=== PATIENT | male | born 1960 | race American Indian/Alaskan Native ===

== ENCOUNTER 2020-07-31 13:21 | Emergency (ER) | payer MEDICARE ==
[2020-07-31 13:37] VITALS: BP 133/75
--- NOTE | 2020-07-31 14:21 | Event Note ---
ED Screening Note Date of service: 07/31/20 Time: 14:16 ED Screening Note: 60-year-old male with no prior medical condition presents with frequent urination x24 hours. This initial assessment/diagnostic orders/clinical plan/treatment(s) is/are subject to change based on patients health status, clinical progression and re- assessment by fellow clinical providers in the ED. Further treatment and workup at subsequent clinical providers discretion. Patient/guardian urged not to elope from the ED as their condition may be serious if not clinically assessed and managed. Initial orders include: Urinalysis, CBC CMP ordered.
[2020-07-31 14:25] LABS: Bilirubin,Urine NEG (Negative); Blood,Urine LG (Negative); Color,Urine Yellow (Yellow); Mucus,Urine FEW /HPF; Urobilinogen,Urine < 2.0 mg/dL (<2.0)
[2020-07-31 14:27] LABS: WBC,Urine > 182.0 /HPF (0.0-6.0)
[2020-07-31] MEDS ORDERED: AZITHROMYCIN 250 MG TAB PO ONE (15:28)
[2020-07-31] MEDS ORDERED: LIDOCAINE-MPF (1%) 10 MG/1 ML VIAL 5 ML INFILTRATI ONE ×2 (15:28)
--- NOTE | 2020-07-31 15:53 | Emergency Department Report ---
ED Male HPI - General Chief complaint: Urogenital-Male Stated complaint: CAN'T STOP URINATING Time Seen by Provider: 07/31/20 15:08 Source: patient Mode of arrival: Ambulatory Limitations: No Limitations - History of Present Illness Initial comments: This is a 60-year-old female nontoxic, well nourished in appearance, no acute signs of distress presents to the ED with c/o of dysuria, polyuria, and urinary frequency x 1 day. Patient denies any penile discharge, bleeding, ulcers or lesions. Patient denies any back or flank pain. Patient denies any pelvic or abdominal pain. Patient denies any nausea, vomiting, chest pain, shortness of breathe, fever, chills, headache, back pain, numbness, tingling, stiff neck. Patient denies any other urinary symptoms. Patient denies any allergies. MD Complaint: dysuria -: days(s) Location: penis Radiation: none Severity: mild Severity scale (0 -10): 3 Quality: burning Consistency: constant Improves with: none Worsens with: urination dysuria. denies: discharge, swelling, mass, rash, urinary retention, blood in urine, fever, nausea/vomiting, incontinence - Related Data Home Medications Medication Instructions Recorded Confirmed Last Taken NIFEdipine [Nifedipine ER] 30 mg PO DAILY 08/04/19 08/04/19 08/04/19 30 mg Torsemide [Demadex] 20 mg PO DAILY 08/04/19 08/04/19 08/04/19 20 mg carvediloL [Coreg] 6.25 mg PO BID 08/04/19 08/04/19 08/04/19 6.25mg traMADoL [Ultram 50 MG tab] 50 mg PO DAILY PRN 08/04/19 08/04/19 08/04/19 11:59 50 mg Previous Rx's Medication Instructions Recorded Last Taken Type Ciprofloxacin HCl 500 mg PO Q12H #20 tablet 07/31/20 Unknown Rx Allergies Allergy/AdvReac Type Severity Reaction Status Date / Time No Known Allergies Allergy Verified 07/31/20 13:34 ED Review of Systems ROS: Stated complaint: CAN'T STOP URINATING Other details as noted in HPI Comment: All other systems reviewed and negative Constitutional: denies: chills, fever Eyes: denies: eye pain, eye discharge, vision change ENT: denies: ear pain, throat pain Respiratory: denies: cough, shortness of breath, wheezing Cardiovascular: denies: chest pain, palpitations Endocrine: no symptoms reported Gastrointestinal: denies: abdominal pain, nausea, diarrhea Genitourinary: dysuria, frequency. denies: urgency, hematuria, discharge, testicular pain, testicular mass Musculoskeletal: denies: back pain, joint swelling, arthralgia Skin: denies: rash, lesions Neurological: denies: headache, weakness, paresthesias Psychiatric: denies: anxiety, depression Hematological/Lymphatic: denies: easy bleeding, easy bruising ED Past Medical Hx - Past Medical History Hx Hypertension: Yes Hx Diabetes: Yes Hx Dementia: Yes - Social History Smoking Status: Never Smoker Substance Use Type: None - Medications Home Medications: Home Medications Medication Instructions Recorded Confirmed Last Taken Type NIFEdipine [Nifedipine ER] 30 mg PO DAILY 08/04/19 08/04/19 08/04/19 History 30 mg Torsemide [Demadex] 20 mg PO DAILY 08/04/19 08/04/19 08/04/19 History 20 mg carvediloL [Coreg] 6.25 mg PO BID 08/04/19 08/04/19 08/04/19 History 6.25mg traMADoL [Ultram 50 MG tab] 50 mg PO DAILY PRN 08/04/19 08/04/19 08/04/19 11:59 History 50 mg Ciprofloxacin HCl 500 mg PO Q12H #20 tablet 07/31/20 Unknown Rx ED Physical Exam - General Limitations: No Limitations General appearance: alert, in no apparent distress - Head Head exam: Present: atraumatic, normocephalic - Eye Eye exam: Present: normal appearance - Neck Neck exam: Present: normal inspection, full ROM. Absent: tenderness, meningismus, lymphadenopathy - Respiratory Respiratory exam: Absent: respiratory distress - Cardiovascular Cardiovascular Exam: Present: regular rate - GI/Abdominal GI/Abdominal exam: Present: soft, normal bowel sounds. Absent: distended, tenderness, guarding, rebound, rigid, diminished bowel sounds - Extremities Exam Extremities exam: Present: normal inspection, full ROM, normal capillary refill. Absent: tenderness - Back Exam Back exam: Present: normal inspection, full ROM. Absent: tenderness, CVA tenderness (R), CVA tenderness (L), muscle spasm, paraspinal tenderness, vertebral tenderness, rash noted - Neurological Exam Neurological exam: Present: alert, oriented X3, normal gait - Psychiatric Psychiatric exam: Present: normal affect, normal mood - Skin Skin exam: Present: warm, dry, intact, normal color. Absent: rash ED Course Vital Signs 07/31/20 13:36 Temperature 98.6 F Pulse Rate 72 Respiratory 18 Rate Blood Pressure 133/75 O2 Sat by Pulse 98 Oximetry - Reevaluation(s) Reevaluation #1: 07/31/20 15:51 Patient is speaking in full sentences with no signs of distress noted. ED Medical Decision Making - Lab Data Lab Results 07/31/20 Range/Units Unknown Urine Color Yellow (Yellow) Urine Turbidity Cloudy (Clear) Urine pH 5.0 (5.0-7.0) Ur Specific Gardner 1.009 (1.003-1.030) Urine Protein 30 mg/dl (Negative) mg/dL Urine Glucose (UA) Neg (Negative) mg/dL Urine Ketones Neg (Negative) mg/dL Urine Blood Lg (Negative) Urine Nitrite Pos (Negative) Urine Bilirubin Neg (Negative) Urine Urobilinogen < 2.0 (<2.0) mg/dL Ur Leukocyte Esterase Lg (Negative) Urine WBC (Auto) > 182.0 H (0.0-6.0) /HPF Urine RBC (Auto) 64.0 (0.0-6.0) /HPF Urine Mucus Few /HPF - Medical Decision Making This is a 60-year-old male that presents with UTI. Patient is stable and was examined by me. UA obtained. Patient does not have any CVA tenderness. No signs or symptoms of pyelonephritis. Patient received Rocephin 1G and azithromycin 1 g in the ED. Patient is discharged with ciprofloxacin. Patient was instructed to Follow-up with a primary care doctor in 3-5 days or if symptoms worsen and continue return to emergency room as soon as possible. At time of discharge, the patient does not seem toxic or ill in appearance. No acute signs of distress noted. Patient agrees to discharge treatment plan of care. No further questions noted by the patient. Critical care attestation.: If time is entered above; I have spent that time in minutes in the direct care of this critically ill patient, excluding procedure time. ED Disposition Clinical Impression: UTI (urinary tract infection) Qualifiers: Urinary tract infection type: acute cystitis Hematuria presence: without hematuria Qualified Code(s): N30.00 - Acute cystitis without hematuria Disposition: - TO HOME OR SELFCARE Is pt being admited?: No Does the pt Need Aspirin: No Condition: Stable Instructions: Urinary Tract Infection, Adult Additional Instructions: Follow-up with a primary care doctor in 3 to 5 days or if symptoms worsen and continue return to emergency room as soon as possible. Prescriptions: Ciprofloxacin HCl 500 mg PO Q12H #20 tablet Referrals: PRIMARY MD BRYSON [Primary Care Provider] - 3-5 Days CHAGO SOSA MD [Staff Physician] - 3-5 Days Time of Disposition: 15:53
== END 2020-07-31 16:58 | disposition home or self-care (01) ==
LOC: ED 13:21
DX: N39.0 Urinary tract infection, site not specified (principal); I10 Essential (primary) hypertension; E11.9 Type 2 diabetes mellitus without complications; F03.90 Unspecified dementia, unspecified severity, without behavioral disturbance, psychotic disturbance, mood disturbance, and anxiety; Z79.899 Other long term (current) drug therapy
CPT/HCPCS: 81001; 82962; 96372; 99283; J0696